=== PATIENT | female | born 1965 | race Caucasian/White ===

== ENCOUNTER → 2016-05-05 | Outpatient (CLI) | payer OTHER ==
[~2016-05-05] MED LIST: CALC-112 PO; IBUP200C PO; MULT-208 PO; OMNIPAQUE 350 MG/ML, 100ML BOTTLE ONE
== END | disposition home or self-care (01) ==
LOC: CFH 11:32
PROVIDERS: ATTEND Specialist
DX: C18.9 Malignant neoplasm of colon, unspecified (principal); D14.2 Benign neoplasm of trachea; R59.1 Generalized enlarged lymph nodes
CPT/HCPCS: 71260; 74177; Q9967